=== PATIENT | male | born 1995 | race Two or more races ===

== ENCOUNTER 2017-05-24 23:45 | Emergency (ER) | payer OTHER ==
[~2017-05-24] VITALS: Ht 162.6 cm; Wt 60.0 kg
[2017-05-24 23:45] VITALS: BP 130/84
== END 2017-05-25 01:24 | disposition left against medical advice (07) ==
LOC: ED 23:59
DX: R51 Headache (principal); Z53.21 Procedure and treatment not carried out due to patient leaving prior to being seen by health care provider